=== PATIENT | male | born 1995 | race African-American/Black ===

== ENCOUNTER 2018-01-07 20:03 | Observation (INO) | payer OTHER, SELFPAY ==
[2018-01-07 20:28] LABS: Bilirubin Negative (Negative); Blood, Urine Negative (Negative); Clarity CLEAR (Clear); Glucose, Urine (Dipstick) Negative (Negative); Leukocyte Negative (Negative); Nitrite Negative (Negative); Protein, Urine (Dipstick) Negative (Neg-Trace); Specific Gravity, Urine 1.024 (1.002-1.036)
[2018-01-07 20:28] LABS: #Lymphocytes 0.9 thou/uL (1.20-3.40); #Neutrophils 7.9 thou/uL (1.40-6.50); %Basophils 0.4 % (0.0-1.0); %Eosinophils 0.1 % (0.0-10.0); %Monocytes 10.4 % (0.0-4.0); %Neutrophils 80.2 % (31.0-61.0); Hemoglobin 14.4 g/dL (14.0-18.0); Mean Corpuscular HGB CONC 34.3 g/dL (32.0-36.0); Mean Corpuscular Hemoglobin 30.4 pg (25.0-35.0); Mean Corpuscular Volume 88.7 fl (77.0-87.0); Mean Platelet Volume 6.8 fL (7.4-10.4); Platelet Count 248 thou/uL (130-400); RBC Distribution Width 10.8 % (11.5-14.5); Red Blood Cell (RBC) Count 4.73 mill/uL (4.00-5.20); White Blood Cell (WBC) Count 9.9 thou/uL (4.8-10.8)
[2018-01-07 20:51] LABS: ALT (SGPT) 19 U/L (8-55); AST (SGOT) 22 U/L (5-34); Albumin 4.8 g/dL (3.5-5.0); Alkaline Phosphatase 94 U/L (Less than 750); Anion Gap 14 mmol/L (10-20); BUN (Urea Nitrogen) 16 mg/dL (8.9-20.6); Bilirubin, Total 0.8 mg/dL (0.2-1.2); Calc. Creatinine Clearance 0 mL/min (70-130); Carbon Dioxide 27 mmol/L (22-29); Chloride 103 mmol/L (98-107); Estimated GFR-MDRD Greater than 90; Globulin 3.8 g/dL (2.4-3.5); Glucose 105 mg/dL (70-105); Lipase 26 U/L (8-78); Potassium 3.5 mmol/L (3.5-5.1); Protein, Total 8.6 g/dL (6.0-8.3); Sodium 140 mmol/L (136-145)
[2018-01-08] MEDS ORDERED: metroNIDAZOLE 500 MG in Premix Bag 1 BAG IVPB SCH ×2 (01:15→12:00)
[2018-01-08] MEDS ORDERED: Morphine 4 MG/ML VIAL SLOW IVP PRN ×4 (02:57→03:15)
[2018-01-08] MEDS ORDERED: Ondansetron HCl/PF 4 MG/2 ML Vial IVP PRN ×2 (02:59→17:39)
[2018-01-08] MEDS ORDERED: Ondansetron ODT 4 MG TAB SL PRN (02:59)
[2018-01-08] MEDS ORDERED: Sodium Chloride 0.9% 1,000 ML IV SCH (03:15)
[2018-01-08 03:28] VITALS: BMI 25.3
--- NOTE | 2018-01-08 08:50 | CT ---
PRELIMINARY REPORT/[facility]/EMERGENTY AFTER-HOURS PROCEDURE CT Abdomen and Pelvis Without Intravenous Contrast EXAM DATE/TIME: 01/08/2018 12:17 AM CLINICAL HISTORY: Pain; Abdominal pain; Localized; Right lower quadrant (rlq); Patient HX: M20 presen erik to ed C/O 3 days of rlq abdominal pain. Pt reports pain has always been there. Pt denies radiatio n or migration. Pt reports staying still helps alleviate pain. Pt reports walking and movement exacerbates the pain. Pt denies appetite changes or fever. Pt denies n/v/d. Pt denies dysuria or noah turia. Pt denies testicular pain TECHNIQUE: Axial computed tomography images of the abdomen and pelvis without intravenous contrast. C oronal reformatted images were created and reviewed. COMPARISON: No relevant prior studies available. FINDINGS: Lung bases: Unremarkable. No mass. No consolidation. ABDOMEN: Liver: Unremarkable. Gallbladder and bile ducts: Unremarkable. No calcified stones. No ductal dilation. Pancreas: Unremarkable. No ductal dilation. Spleen: Unremarkable. No splenomegaly. Adrenals: Unremarkable. No mass. Kidneys and ureters: Unremarkable. No obstructing stones. No hydronephrosis. Stomach and bowel: Unremarkable. No obstruction. No mucosal thickening. PELVIS: Appendix: Tubular structure in the right lower quadrant thought to represent the appendix appears enl arged and thickened measuring up to 15 mm in diameter. It is difficult to confirm which portion of th is structure is the distal aspect. However the largest portion appears somewhat irregular in configuration. Questionable adjacent phlegmon/early abscess subjacent to the right lateral abdominal wall measuring approximately 3.7 x 0.9 x 2.3 cm (series 2 image 53 and series 601 image 41). There ar e a few gas foci subjacent to the right rectus muscle which may be extraluminal (series 2 images 59 a nd 60). Mild surrounding inflammation. Bladder: Unremarkable. No stones. Reproductive: Unremarkable as visualized. ABDOMEN and PELVIS: Intraperitoneal space: Minimal free fluid within the rectovesical space. Bones/joints: No acute fracture. No dislocation. Soft tissues: Tiny fat containing umbilical hernia. Vasculature: Unremarkable. No abdominal aortic aneurysm. Lymph nodes: Ileocolic lymph nodes measuring up to 9 mm in short axis. IMPRESSION: 1. Findings suspicious for acute appendicitis. A portion of what is presumed to be the inflamed appen mia appears somewhat irregular in contour. Questionable adjacent phlegmon/early abscess subjacent to the right lateral abdominal wall measuring approximately 3.7 x 0.9 x 2.3 cm. There are a few gas foci subjacent to the right rectus muscle which may potentially be extraluminal in the settin g of microperforation. 2. Other findings as above. THIS REPORT CONTAINS FINDINGS THAT MAY BE CRITICAL TO PATIENT CARE. The findings were verbally commun icated via telephone conference with NIMA QUEZADA at 12:50 AM CDT on 01/08/2018. The findings were acknowledged and understood. Thank you for allowing us to participate in the care of your patient. Dictated and Authenticated by: Kaveh Mcneal MD 01/08/2018 12:50 AM Central Time ([place] & [place]) FINAL REPORT CT ABDOMEN AND PELVIS WITHOUT CONTRAST: HISTORY: Abdominal pain, right lower quadrant pain. FINDINGS/IMPRESSION: Findings and impression are concordant with the preliminary report. POS: [facility]
--- NOTE | 2018-01-08 11:07 | HP ---
CHIEF COMPLAINT: Right lower quadrant abdominal pain. HISTORY OF PRESENT ILLNESS: The patient is a 22-year-old male with 3-day history of right lower quad rant pain, some nausea, no vomiting, no fevers or chills. CT scan showed appendicitis. PAST MEDICAL HISTORY: Otherwise, healthy. PAST SURGICAL HISTORY: None. MEDICATIONS: None. ALLERGIES: He has an allergy to AMOXICILLIN. SOCIAL HISTORY: Single, unemployed. No tobacco or alcohol. FAMILY HISTORY: Diabetes. PHYSICAL EXAMINATION: VITAL SIGNS: Temperature 98.6, pulse 67, blood pressure 152/81. GENERAL: He is a thin male, appears in no distress. HEENT: Unremarkable. LUNGS: Clear. HEART: Regular rate and rhythm. ABDOMEN: Soft, nondistended, tender in the right lower quadrant, no palpable masses. EXTREMITIES: Unremarkable. LABORATORY DATA AND IMAGING DATA: White count 9.9, hemoglobin and hematocrit 14 and 42, and platelet count 248. Electrolytes are fine. CT scan shows probable appendicitis with possible periappendicea l abscess. PLAN: Laparoscopic appendectomy. CONSENT: I have discussed the planned procedure as well as risk of bleeding, infection, injury to diana wel, bladder, need to open. He understands and gives an informed consent.
[2018-01-08 12:29] VITALS: TEMP 98.8
[2018-01-08] MEDS ORDERED: Glycopyrrolate 0.2 MG/ML 5 ML SYRINGE ONE (13:28)
[2018-01-08] MEDS ORDERED: Ketorolac Tromethamine 30 MG/ML VIAL ONE (13:28)
[2018-01-08] MEDS ORDERED: Lidocaine 1% PF 5 ML VIAL ONE (13:28)
[2018-01-08] MEDS ORDERED: PROPOFOL 200 MG/20 ML VIAL ONE (13:28)
[2018-01-08] MEDS ORDERED: Levofloxacin 500 mg/D5W 100 ml Premix Bag ONE (16:03)
[2018-01-08] MEDS ORDERED: Bupivacaine/Epinephrine 0.25% 30 ML VIAL ONE (16:09)
[2018-01-08] MEDS ORDERED: HYDROmorphone 0.5 MG/0.5 ML SYRINGE ONE (16:17)
[2018-01-08] MEDS ORDERED: Fentanyl 100 MCG/2 ML VIAL ONE (16:17)
[2018-01-08] MEDS ORDERED: Midazolam HCl 2 mg/2 ml Vial ONE (16:17)
[2018-01-08] MEDS ORDERED: HYDROcodone/Acetaminophen 7.5/325 mg Tablet PO PRN ×2 (17:29)
[2018-01-08] MEDS ORDERED: Promethazine HCl 25 MG/ML VIAL SLOW IVP PRN (17:39)
[2018-01-08] MEDS ORDERED: Promethazine HCl 25 MG/ML VIAL IM PRN (17:39)
[2018-01-08 19:24] VITALS: BP 132/86
--- NOTE | 2018-01-08 22:36 | OP ---
PREOPERATIVE DIAGNOSIS: Acute appendicitis. SURGEON: Dru Ford M.D. PROCEDURE PERFORMED: Laparoscopic appendectomy. INDICATIONS: A 22-year-old male who has a 3-day history of right lower quadrant pain associated with nausea, came to the ER last night with CT scan showing acute appendicitis. FINDINGS: Acute suppurative nonperforated appendicitis. PROCEDURE IN DETAIL: After informed consent was obtained, the patient was taken to the operating eunice m and given general endotracheal anesthesia. He was placed in the supine position. His abdomen was prepped and draped in usual fashion. Local anesthesia infiltrated subcutaneously and deep and a subu mbilical incision was performed. The subcu divided sharply. The fascia grasped and two stay sutures of 0 Vicryl placed to either side of midline. Midline incised. Digital palpation revealed no local adhesions. A blunt 10/12 mm trocar inserted. Pneumoperitoneum was created to a pressure of 15 mmHg . Zero degree laparoscope inserted under direct vision, two 5-mm ports were placed, one suprapubic a nd one right lateral abdomen. The appendix was grasped. The mesoappendix divided utilizing the Liga Sure. The base of the appendix was divided with linear 45 mm white load stapler. The appendix was p laced in an Endosac and removed from the abdomen, sent to pathology for further analysis. Hemostasis was assured. The abdomen irrigated and irrigation fluid removed. Trocars and retractors removed. The fascia closed with interrupted 0 Vicryl sutures. Skin closed with interrupted 4-0 Rapide. [place] buchanan applied. The patient tolerated the procedure well and was transferred to recovery in good condi tion. Sponge and needle count verified correct x2.
== END 2018-01-08 21:00 | disposition home or self-care (01) ==
LOC: ERS 20:03 → SURG A 01-08 01:00
PROVIDERS: ADMIT Surgery; ATTEND Surgery
PROC: 0DTJ4ZZ Resection of Appendix, Percutaneous Endoscopic Approach (ICD-10-PCS; principal; 2018-01-08)
DX: K35.3 Acute appendicitis with localized peritonitis (principal); Z88.0 Allergy status to penicillin; Z88.1 Allergy status to other antibiotic agents
CPT/HCPCS: 36415; 74176; 80053; 81003; 83690; 85025; 88304; 96365; G0378; J0744; J1170; J1885; J1956; J2001; J2250; J2704; J3010

== ENCOUNTER 2023-10-07 09:25 | Emergency (ER) | payer SELFPAY ==
[2023-10-07] MEDS ORDERED: Ibuprofen 800 MG TAB ONE (09:43)
[2023-10-07] MEDS ORDERED: predniSONE 20 MG TAB ONE (09:43)
== END 2023-10-07 09:51 | disposition home or self-care (01) ==
LOC: ERS 09:25
DX: M79.642 Pain in left hand (principal); M25.511 Pain in right shoulder; Z87.891 Personal history of nicotine dependence
CPT/HCPCS: 99283; J7512

== ENCOUNTER 2024-03-02 12:44 | Emergency (ER) | payer SELFPAY ==
[2024-03-02] MEDS ORDERED: Ibuprofen 200 MG TAB ONE (14:38)
== END 2024-03-02 15:50 | disposition home or self-care (01) ==
LOC: ERS 12:44
DX: J02.9 Acute pharyngitis, unspecified (principal); F17.210 Nicotine dependence, cigarettes, uncomplicated
CPT/HCPCS: 87081; 87430; 99282